=== PATIENT | female | born 1950 | race Caucasian/White ===

== ENCOUNTER 2016-11-09 09:00 | Day surgery (SDC) | payer OTHER ==
[~2016-11-09] VITALS: Ht 160 cm; Wt 106.0 kg
[~2016-11-09 09:00] MED LIST: 0.9% Sodium Chloride 1,000 ML IV SCH; ASPI325T32 PO; MULT-1018 PO; OMEG-38 PO; Sodium Chloride LOK Flush 10 mL Syringe IV PRN; TURM1POW PEG; VIT1TABL83 PO; fentaNYL-PF 50 mCg/mL 2 mL Inj IVPUSH PRN
[2016-11-09 09:36] VITALS: BP 147/80; PULSE 74; RESP 18; O2SAT 97
[2016-11-09 11:04] VITALS: BP 112/68; PULSE 67; RESP 14; O2SAT 97
[2016-11-09 11:13] VITALS: BP 125/60; PULSE 66; RESP 14; O2SAT 98
--- NOTE | 2016-11-09 11:13 | ENDO ---
[address] [address] ENDOSCOPY PROCEDURE PATIENT: TAMARA SMALL : 1950 MR#: [id number] ADMIT: 11/09/2016 JOB ID: [id number] DATE OF SERVICE: 11/09/2016 PROCEDURE PERFORMED: Colonoscopy. INDICATIONS: Patient with a personal history of colon polyps. ASA CLASSIFICATION: The patient's ASA classification is II. MALLAMPATI SCORE: Mallampati score was 2. MEDICATIONS: 1. Versed 5 mg. 2. Fentanyl 125 mcg. INSTRUMENT USED: PCF-H180AL. PREPARATION QUALITY: Good. PROCEDURE DETAILS: After informed consent was obtained, the patient was brought to the GI suite, where she was placed on oxygen via nasal cannula and monitored with continuous pulse oximeter, telemetry, and blood pressure monitoring. A time-out was performed. Then, she was placed in the left lateral decubitus position and medications were administered for sedation. Digital rectal exam was performed which was unremarkable. The colonoscope was then inserted into the rectum and advanced with a moderate amount of difficulty to the cecum. She did require position changes and application of abdominal pressure for us to reach the cecum. Once the cecum was reached which was identified by the presence of the ileocecal valve and appendiceal orifice, the colonoscope was then withdrawn back into the rectum, as the mucosa and lumen were examined. In the rectum, retroflexion was performed. Following retroflexion, remaining air in the rectum was suctioned, and procedure was completed. FINDINGS: 1. In the cecum there was an approximately 4-5 mm sessile polyp that was removed with a cold snare. 2. In the ascending colon there was a diminutive polyp that was removed with a cold biopsy forceps. 3. In the descending colon there was a 3-4 mm sessile polyp that was removed with a cold snare. IMPRESSION: 1. Cecal polyp. 2. Ascending colon polyp. 3. Descending polyp. RECOMMENDATIONS: Repeat colonoscopy pending polyp pathology results. COMPLICATIONS: None. ESTIMATED BLOOD LOSS: Less than 5 mL.
--- NOTE | 2016-11-10 17:45 | PATH ---
SURGICAL PATHOLOGY Attending Physician:Juan Carlos Styles CASE STATUS: Signed Out PATIENT NAME: TAMARA SMALL PID: [id number] : 1950 DATE COLLECTED:11/09/2016 22:45 SPECIMEN: 1: Colon, Biopsy 2: Colon, Biopsy 3: Colon, Biopsy CLINICAL HISTORY: SCREENING HISTORY COLON POLYPS 1). CECAL POLYP 2). ASCENDING COLON POLYP 3). DESCENDING COLON POLYP FINAL DIAGNOSIS: 1.CECAL POLYP: Multiple portions (approximately 7) of tubular adenoma; negative for high-grade dydsplasia. 2.ASCENDING COLON POLYP: Portion of tubular adenoma x1; negative for high-grade dysplasia. Superficial portion of colorectal mucosa x1 with no diagnostic abnormality. 3.DESCENDING COLON POLYP: Tubular adenoma; negative for high-grade dysplasia. [id number] GROSS DESCRIPTION: The specimen is received in three formalin filled containers labeled with the patient's name. 1). The specimen is sublabeled "cecum polyp" and consists of multiple portions of tissue which aggregate to 0.3 x 0.3 x 0.2 CM. The specimen is entirely submitted in cassette 1A. 2). The specimen is sublabeled "ascending colon polyp" and consists of 2 portions of tissue measuring 0.3 x 0.2 x 0.2 CM in aggregate which is entirely submitted in cassette 2A. 3). The specimen is sublabeled "descending colon polyp" and consists of a 0.2 x 0.2 x 0.1 CM portion of tissue which is entirely submitted in cassette 3A. 11/10/2016 DAC MICRO DESCRIPTION: See diagnosis. ICD-9 CODES: CPT CODES: 1: 64838 2: 12096 3: 37070 Electronically Signed Out Deirdre Springer MD [facility], [place] [address] Technical component performed at [facility], [facility] [address], [place], [address]
== END 2016-11-09 23:59 | disposition home or self-care (01) ==
LOC: END 09:00
PROVIDERS: ATTEND Internal Medicine Gastroenterology
DX: Z12.11 Encounter for screening for malignant neoplasm of colon (principal); Z86.010 Personal history of colon polyps; D12.0 Benign neoplasm of cecum; D12.2 Benign neoplasm of ascending colon; D12.4 Benign neoplasm of descending colon; E03.9 Hypothyroidism, unspecified; M89.9 Disorder of bone, unspecified; E66.9 Obesity, unspecified; Z79.82 Long term (current) use of aspirin; Z85.3 Personal history of malignant neoplasm of breast; Z87.442 Personal history of urinary calculi; Z87.440 Personal history of urinary (tract) infections; Z90.710 Acquired absence of both cervix and uterus; Z87.891 Personal history of nicotine dependence; Z68.41 Body mass index [BMI] 40.0-44.9, adult
CPT/HCPCS: 45380; 45385; 99153; G0500; J2250; J3010; J7030